=== PATIENT | female | born 1960 | race Caucasian/White ===

== ENCOUNTER 2024-01-22 20:53 | Emergency (ER) | payer MEDICARE ==
[~2024-01-22] VITALS: Ht 172.7 cm; Wt 58.2 kg
[2024-01-22 21:09] LABS: URINE APPEARANCE CLOUDY (CLEAR); URINE COLOR YELLOW (YELLOW)
[2024-01-22 21:11] LABS: URINE BILIRUBIN NEGATIVE (NEGATIVE); URINE BLOOD 2+ (NEGATIVE); URINE GLUCOSE NEGATIVE (NEGATIVE); URINE KETONE NEGATIVE (NEGATIVE); URINE LEUKOCYTE ESTERASE 3+ (NEGATIVE); URINE NITRATE NEGATIVE (NEGATIVE); URINE PROTEIN(semi-quant) 1+ (NEGATIVE)
[2024-01-22 21:24] LABS: URINE WBC >50 /hpf (0-3)
[2024-01-22] MEDS ORDERED: Nitrofurantoin (Mono/Macro) 100 MG CAPSULE PO ONE (21:45)
[2024-01-22] MEDS ORDERED: MACROBID 100 M100 MG PO (21:45)
[2024-01-22 21:53] VITALS: BP 114/78
== END 2024-01-22 21:53 | disposition home or self-care (01) ==
LOC: ED 20:53
PROVIDERS: Family Medicine
DX: N39.0 Urinary tract infection, site not specified (principal)